=== PATIENT | female | born 1985 ===

== ENCOUNTER 2019-01-15 23:55 | Inpatient (IN) | payer BC ==
[2019-01-16] MEDS ORDERED: TERBUTALINE 1 MG/ML VIAL SQ PRN (00:53)
[2019-01-16] MEDS ORDERED: CARBOPROST TROMETHAMINE 250 MCG/ML 1 ML AMP IM PRN (00:53)
[2019-01-16] MEDS ORDERED: METHYLERGONOVINE 0.2 MG/ML 1 ML AMP IM PRN (00:53)
[2019-01-16] MEDS ORDERED: OXYTOCIN 10 UNIT/ML 1 ML VIAL IM PRN (00:53)
[2019-01-16] MEDS ORDERED: LIDOCAINE 0.5% (PF) 5 MG/ML (50 ML SDV) SQ PRN (00:53)
[2019-01-16] MEDS: LACTATED RINGERS 1,000 ML IV SCH ×4 (01:10→22:56)
[2019-01-16 01:25] LABS: Basophils % (A) 0 %; Eosinophils # (A) 0.1 k/uL (0-0.7); Eosinophils % (A) 1 %; HCT 35.8 % (34.0-46.0); HGB 12.1 gm/dL (11.4-16.0); Lymphocytes # (A) 1.8 k/uL (1.0-4.8); Lymphocytes % (A) 15 %; MCH 31.3 pg (25.0-35.0); MCHC 33.7 g/dL (31.0-37.0); MCV 92.9 fL (80.0-100.0); Mean Platelet Volume 7.9; Monocytes # (A) 0.8 k/uL (0-1.0); Monocytes % (A) 6 %; Neutrophils # (A) 9.2 k/uL (1.3-7.7); Neutrophils % (A) 75 %; Platelet Count 207 k/uL (150-450); RBC 3.86 m/uL (3.80-5.40); RDW 13.3 % (11.5-15.5); WBC 12.3 k/uL (3.8-10.6)
[2019-01-16] MEDS ORDERED: ROPIVACAINE 5MG/ML 20ML VIAL ONE (02:00)
[2019-01-16] MEDS ORDERED: ePHEDrine SULFATE/0.9% NACL/PF 50 MG/5 ML SYRINGE IV ONE (02:00)
[2019-01-16] MEDS ORDERED: SODIUM CHLORIDE 0.9% 100 ML BAG ONE (02:00)
[2019-01-16] MEDS ORDERED: fentaNYL (PF) 50 MCG/ML 5 ML AMP ONE (02:00)
[2019-01-16 02:27] VITALS: BMI 29.8
--- NOTE | 2019-01-16 04:42 | P.HPOB ---
History of Present Illness H&P Date: 01/16/19 Chief Complaint: 38+ weeks, early active labor The patient is a 33-year-old 1 para 0 admitted at 38+ weeks as established by in vitro fertilization dating parameters. She is admitted in early active labor with all signs reassuring. Her has been entirely u ncomplicated and group B strep status is negative. She does fall into the category of advanced maternal age and declined testing. Obstetrical history: 1 para 0 with current statistics listed above. EDC of 01/28/2019 was established by in vitro fertilization dating para meters. Laboratory workup demonstrates a blood type of A+ with a negative antibody screen. Rubella status is immune. The remainder of the laboratory workup was within normal limits. One hour Glucola was normal and group B strep status is negative. : Gynecologic history unremarkable with no history of any infections to include STDs. Review of Systems Review of systems is confined to history of present illness. Past Medical History Past Medical History: Thyroid Disorder Additional Past Medical History / Comment(s): hypothyroid, no longer taking meds History of Any Multi-Drug Resistant Organisms: None Reported Past Surgical History: No Surgical Hx Reported Past Anesthesia/Blood Transfusion Reactions: No Reported Reaction Past Psychological History: No Psychological Hx Reported Smoking Status: Never smoker Past Alcohol Use History: None Reported Past Drug Use History: None Reported - Past Family History Mother Family Medical History: No Reported History Medications and Allergies Home Medications Medication Instructions Recorded Confirmed Type Ferrous Sulfate [Iron] 325 mg PO DAILY 01/16/19 01/16/19 History Pnv,Calcium 72/Iron/Folic Acid 1 tab PO DAILY 01/16/19 01/16/19 History [ Plus Tablet] Allergies Allergy/AdvReac Type Severity Reaction Status Date / Time No Known Allergies Allergy Verified 01/16/19 00:15 Exam Vital Signs Temp Pulse Resp BP Pulse Ox 01/16/19 00:53 98.1 F 76 16 114/74 99 01/16/19 00:17 98.1 F 76 16 114/74 99 Intake and Output 01/15/19 01/15/19 01/16/19 14:59 22:59 06:59 Other: Weight 73.936 kg In general, this is a well-developed, well-nourished female in no acute distress though she is near delivery. Her heart has a regular rhythm and rate without murmur. Her lungs are clear to auscultation bilaterally in all catherine. Her abdomen is gravid, nondistended, has normal active bowel sounds, is soft, nontender, and without any palpable masses aside from the uterine fundus. Her extremities are without any cyanosis, clubbing, or significant edema and are nontender to palpation bilaterally. Digital cervical examination at this time demonstrates her cervix to be dilated to a small rim, 100% effaced, the vertex in presentation at 0 to -1 station. Artificial rupture of membranes is carried out demonstrating clear fluid. Results Result Diagrams: 01/16/19 01:15 Abnormal Lab Results - Last 24 Hours (Table) 01/16/19 Range/Units 01:15 WBC 12.3 H (3.8-10.6) k/uL Neutrophils # 9.2 H (1.3-7.7) k/uL Assessment and Plan (1) Active labor at term Current Visit: Yes Status: Acute Code(s): FEF1126 - SNOMED Code(s): 46359321 Plan: The patient has been admitted for close maternal and surveillance and expectant management. An epidural catheter is in place for analgesia. We'll anticipate normal spontaneous vaginal delivery in the near future.
[2019-01-16] MEDS ORDERED: CITRIC ACID-SODIUM CITRATE 15 ML CUP PO ONE (07:03)
[2019-01-16] MEDS ORDERED: ONDANSETRON 4 MG/2 ML VIAL ONE (07:12)
[2019-01-16] MEDS ORDERED: MORPHINE SULFATE (PF) 0.3 MG/0.3 ML SYR ONE (07:12)
[2019-01-16] MEDS ORDERED: OXYTOCIN 10 UNIT/ML 1 ML VIAL ONE (07:12)
[2019-01-16] MEDS ORDERED: DEXAMETHASONE SOD PHOS (MDV) 100 MG/10 ML VIAL ONE (07:12)
[2019-01-16] MEDS ORDERED: KETOROLAC 30 MG/ML 1 ML VIAL ONE (07:12)
[2019-01-16] MEDS ORDERED: CHLOROPROCAINE 3% 30 MG/ML 20 ML VIAL ONE (07:12)
[2019-01-16] MEDS ORDERED: diphenhydrAMINE 50 MG/ML 1 ML VIAL IVP PRN ×2 (08:03)
[2019-01-16] MEDS ORDERED: HYDROcodone/APAP 7.5-325MG 1 EACH TAB PO PRN (08:03)
[2019-01-16] MEDS ORDERED: HYDROcodone/APAP 5-325MG 1 EACH TAB PO PRN (08:03)
[2019-01-16] MEDS ORDERED: ACETAMINOPHEN TAB 325 MG TAB PO PRN (08:03)
[2019-01-16] MEDS ORDERED: LANOLIN CREAM 5 GM TUBE TOPICAL PRN (08:03)
[2019-01-16] MEDS ORDERED: SIMETHICONE 80 MG CHEWABLE PO PRN (08:03)
[2019-01-16] MEDS ORDERED: ZOLPIDEM 5 MG TAB PO PRN (08:03)
[2019-01-16] MEDS ORDERED: diphenhydrAMINE 25 MG CAP PO PRN (08:03)
[2019-01-16] MEDS ORDERED: NALOXONE 0.4 MG/ML 1 ML VIAL IV PRN (08:03)
[2019-01-16] MEDS ORDERED: METOCLOPRAMIDE 5 MG/ML 2 ML VIAL IVP PRN (08:03)
[2019-01-16] MEDS ORDERED: diphenhydrAMINE 50 MG CAP PO PRN (08:03)
[2019-01-16] MEDS ORDERED: ONDANSETRON 4 MG/2 ML VIAL IVP PRN (08:03)
--- NOTE | 2019-01-16 08:11 | P.OP ---
Date of Procedure: 01/16/19 Preoperative Diagnosis: #1. 38-2/7 weeks, active labor #2. Arrest of descent in the second stage Postoperative Diagnosis: Same plus #3. right occiput posterior presentation Procedure(s) Performed: #1. Primary low-transverse section Anesthesia: epidural Surgeon: Jose Billings Wedger And Gluer #1: Charlene Francisco Estimated Blood Loss (ml): 300 IV fluids (ml): 500 Urine output (ml): 75 Pathology: none sent Condition: stable Disposition: floor Operative Findings: Preoperatively the patient progressed to complete and approximately 0 station. She pushed over the course of approximately 2 hours with no descent of the station below 0 to +1 station. She was felt to have a narrow pelvis. She was counseled and agreed to proceed to the operating room for primary low-transverse section where she was delivered of a viable 6 lbs. 2 oz. baby boy with Apgars of 7 at 1 minute and 8 at 5 minutes delivered in the right occiput posterior position. The placenta was delivered manually, intact, and grossly normal with a grossly normal three-vessel cord. The uterus, tubes, and ovaries were normal to inspection. Description of Procedure: The patient was prepped and draped in usual fashion after epidural anesthesia was bolused by the anesthesiologist. A Pfannenstiel incision was made and extended into the abdominal cavity without difficulty. The bladder peritoneum was elevated, incised, and reflected distally as the head was thought to be low in the pelvis. A 2 cm incision was made in the transverse plane of the lower uterine segment to enter the uterus at which time clear fluid was again noted. The incision was extended in both directions using the bandage scissors. The head was encountered deep within the pelvis and was elevated up and through the incision where the nose and mouth were thoroughly suctioned. Remainder of the was delivered onto the field where the cord was doubly clamped, cut, and the passed for resuscitative measures with weight and Apgars as noted above. A segment of cord was doubly clamped, cut, and set aside should cord gases be necessary. The placenta was delivered manually and intact as noted above. The uterus was exteriorized and the interior cavity of the uterus swept of any remaining placental or membranous fragments. The margins of the incision were grasped with Casey clamps and there were noted to be bilateral short extensions of the uterine incision towards the cervix, neither at the angle. These were incorporated into the closure. The incision was then closed in 2 layers with the first layer being a running locking stitch of 0 chromic catgut followed by a running imbricating layer of 0 chromic catgut, each from margin to margin. Any small points of bleeding were made hemostatic with the Bovie. The posterior cul-de-sac was suctioned with a guard and the uterine and ovarian findings were normal as noted above. The uterus was replaced within the abdominal cavity and the incision reexamined. One point of bleeding in the left central portion of the incision was made hemostatic with a single [id number] stitch of 0 chromic catgut. Any other small points of bleeding were made hemostatic with the Bovie. Once hemostasis was achieved, the parietal peritoneum was loosely reapproximated and layer of muscles examined and found to be hemostatic. The fascia was closed with a single running stitch of 0 Vicryl proceeding from margin to margin. The subcutaneous tissues were irrigated, made hemostatic with the Bovie, and reapproximated with a running stitch of 30 plain catgut. The skin was reapproximated with a running subcuticular stitch of 4-0 Vicryl from margin to margin followed by half-inch Steri-Strips placed with Mastisol. Estimated blood loss for the entire case was approximately 300 mL. There were no complications. All sponge, instrument, and needle counts were correct. The patient tolerated the procedure well and proceeded to the recovery room in stable condition. Both mother and are resting comfortably in recovery.
[2019-01-16] MEDS ORDERED: OXYTOCIN 20 UNITS/1000 ML NS 1,000 ML IV SCH (08:15)
[2019-01-16] MEDS: KETOROLAC 30 MG/ML 1 ML VIAL IVP PRN (20:54)
[2019-01-16] MEDS: SENNOSIDES-DOCUSATE SODIUM 1 EACH TAB PO SCH (22:54)
[2019-01-17] MEDS: KETOROLAC 30 MG/ML 1 ML VIAL IVP PRN (05:49)
[2019-01-17 07:48] LABS: Basophils % (A) 0 %; Eosinophils # (A) 0.1 k/uL (0-0.7); Eosinophils % (A) 1 %; HCT 26.5 % (34.0-46.0); Lymphocytes # (A) 1.3 k/uL (1.0-4.8); Lymphocytes % (A) 11 %; MCH 31.7 pg (25.0-35.0); MCHC 33.6 g/dL (31.0-37.0); MCV 94.3 fL (80.0-100.0); Monocytes # (A) 0.7 k/uL (0-1.0); Monocytes % (A) 6 %; Neutrophils # (A) 9.6 k/uL (1.3-7.7); Neutrophils % (A) 81 %; Platelet Count 146 k/uL (150-450); RBC 2.81 m/uL (3.80-5.40); RDW 13.7 % (11.5-15.5); WBC 11.9 k/uL (3.8-10.6)
[2019-01-17 07:54] LABS: HGB 8.9 gm/dL (11.4-16.0)
[2019-01-17] MEDS: SENNOSIDES-DOCUSATE SODIUM 1 EACH TAB PO SCH ×2 (08:15→20:03)
--- NOTE | 2019-01-17 08:39 | P.PNOBGPC ---
Subjective - Subjective Patient reports: Reports appetite normal, Reports voiding normally, Reports pain well controlled, Reports ambulating normally : doing well, nursing well Objective - Vital Signs Latest vital signs: Vital Signs Temp Pulse Resp BP Pulse Ox 01/17/19 08:00 97.6 F 79 16 98/58 98 01/17/19 04:00 97.3 F L 70 16 99/60 01/17/19 00:00 98.0 F 81 16 95/49 98 01/16/19 20:00 99.1 F 81 16 101/58 97 01/16/19 16:00 18 01/16/19 12:00 98.3 F 71 16 110/63 98 01/16/19 10:05 98.3 F 69 16 117/55 100 01/16/19 09:35 70 16 113/59 100 01/16/19 09:05 75 16 101/50 100 01/16/19 08:50 71 16 104/55 98 Intake and Output 01/16/19 01/17/19 01/17/19 22:59 06:59 14:59 Intake Total 300 Output Total 1300 550 Balance -1000 -550 Intake: Oral 300 Output: Urine 1300 550 Other: # Voids 1 1 - Exam Extremities: Present: normal Abdomen: Present: normal appearance, soft. Absent: distention, tenderness Incision: Present: normal, dry, intact Uterus: Present: normal, firm (The uterine fundus is tonic and nontender at the umbilicus.) - Labs Labs: Abnormal Lab Results - Last 24 Hours (Table) 01/17/19 Range/Units 06:37 WBC 11.9 H (3.8-10.6) k/uL RBC 2.81 L (3.80-5.40) m/uL Hgb 8.9 L D (11.4-16.0) gm/dL Hct 26.5 L (34.0-46.0) % Plt Count 146 L (150-450) k/uL Neutrophils # 9.6 H (1.3-7.7) k/uL Assessment and Plan (1) Active labor at term Current Visit: Yes Status: Acute Code(s): [id number] - SNOMED Code(s): 38721204 (2) S/P section Current Visit: Yes Status: Acute Code(s): Z98.891 - HISTORY OF UTERINE SCAR FROM PREVIOUS SURGERY SNOMED Code(s): 075181721 Plan: Continue routine postoperative care. I have encouraged her amulet the hallways at least 4 times daily and would anticipate discharge home tomorrow pending no complications.
[2019-01-17] MEDS: IBUPROFEN 600 MG TAB PO PRN ×2 (12:35→20:03)
[2019-01-18] MEDS: IBUPROFEN 600 MG TAB PO PRN ×2 (04:12→17:17)
[2019-01-18] MEDS: SENNOSIDES-DOCUSATE SODIUM 1 EACH TAB PO SCH (08:00)
--- NOTE | 2019-01-18 09:16 | P.PNOBGPC ---
Subjective - Subjective Patient reports: Reports appetite normal, Reports voiding normally, Reports pain well controlled, Reports ambulating normally : doing well Objective - Vital Signs Latest vital signs: Vital Signs Temp Pulse Resp BP Pulse Ox 01/18/19 00:00 98.9 F 72 16 95/59 96 01/17/19 16:00 98.0 F 75 16 105/65 99 - Exam Extremities: Present: normal, edema (1-2+ bilateral lower extremity pitting edema to the mid calf.) Abdomen: Present: normal appearance, soft. Absent: distention, tenderness Incision: Present: normal, dry, intact Uterus: Present: normal, firm Assessment and Plan (1) Active labor at term Current Visit: Yes Status: Acute Code(s): [id number] - SNOMED Code(s): 48448226 (2) S/P section Current Visit: Yes Status: Acute Code(s): Z98.891 - HISTORY OF UTERINE SCAR FROM PREVIOUS SURGERY SNOMED Code(s): 485472125 Plan: Continue routine postoperative and care. I would anticipate discharge home tomorrow pending no complications.
[2019-01-19 00:02] VITALS: RESP 16
[2019-01-19] MEDS: IBUPROFEN 600 MG TAB PO PRN ×2 (06:06→12:11)
[2019-01-19] MEDS: SENNOSIDES-DOCUSATE SODIUM 1 EACH TAB PO SCH ×2 (07:02→08:43)
[2019-01-19 09:01] VITALS: BP 109/57; PULSE 75; TEMP 98.3
--- NOTE | 2019-01-19 09:55 | P.DS ---
Providers Date of admission: 01/16/19 00:40 Expected date of discharge: 01/19/19 Attending physician: Jose Billings Primary care physician: Stated None - Discharge Diagnosis(es) (1) Active labor at term Current Visit: Yes Status: Acute (2) S/P section Current Visit: Yes Status: Acute Hospital Course: The patient is a 33-year-old 1 para 0 admitted at 38+ weeks by good dating parameters perches admitted in early active labor with all signs reassuring. Her was uncomplicated and group B strep status was negative. She fell into the category of advanced maternal age and declined testing for trisomy. She labored to complete and then pushed for well over an hour with no descent of the head below 0 station and was thought to have both a contracted pelvis and possible malposition. She was taken the operating room where she underwent primary low-transverse section and uncomplicated fashion and was delivered of a viable 6 lbs. 2 oz. baby boy with Apgars of 7 at 1 minute and 8 at 5 minutes. Her postoperative course was unremarkable vital signs remaining stable and her temperature was afebrile throughout. She was deemed stable for discharge on postoperative day #3 and was discharged home to follow-up in the office in 2 weeks for an incision check and 6 weeks routinely. Discharge instructions included calling for any significantly increased bleeding or foul-smelling lochia, significantly increased fever or abdominal pain, perineal complaints, breast complaints, incisional complaints, or anything else that concerned her. She was additionally instructed to have nothing in the vagina for at least 6 weeks time to include intercourse and to abstain from any heavy lifting over the same period of time. She was lastly instructed to do no driving until off of all pain medications or 2 weeks' time, whichever came first. She understood her instructions and agrees to follow up as noted above. Discharge medications included continued vitamins as she has opted to breast-feed. She was additionally to take [id number] analgesic pain medications as needed was provided with a prescription for Tylenol No. 3, 1-2 by mouth every 6 hours when necessary pain, #20 dispensed with no refills. Maternal blood type is A+ and rubella status is immune. Discharge hemoglobin and hematocrit were 8.9 and 26.5 respectively. As a result, she was advised to take iron sulfate 325 mg daily for the next 1-2 months. Procedures: #1. Epidural analgesia #2. Primary low-transverse section Patient Condition at Discharge: Stable Plan - Discharge Summary New Discharge Prescriptions: No Action Pnv,Calcium 72/Iron/Folic Acid [ Plus Tablet] 1 tab PO DAILY Ferrous Sulfate [Iron] 325 mg PO DAILY Discharge Medication List Ferrous Sulfate [Iron] 325 mg PO DAILY 01/16/19 [History] Pnv,Calcium 72/Iron/Folic Acid [ Plus Tablet] 1 tab PO DAILY 01/16/19 [History] Follow up Appointment(s)/Referral(s): Jose Billings MD [STAFF PHYSICIAN] - 2 Weeks Discharge Disposition: HOME SELF-CARE
== END 2019-01-19 12:20 | disposition home or self-care (01) | DRG 788 ==
LOC: FBPOP 23:55 → 4FBP 01-16 00:40 → UNDODISIN 01-17 14:30
PROVIDERS: ADMIT Obstetrics & Gynecology; ATTEND Obstetrics & Gynecology
PROC: 10907ZC Drainage of Amniotic Fluid, Therapeutic from Products of Conception, Via Natural or Artificial Opening (ICD-10-PCS; 2019-01-16)
PROC: 00HU33Z Insertion of Infusion Device into Spinal Canal, Percutaneous Approach (ICD-10-PCS; 2019-01-16)
PROC: 3E0R3NZ Introduction of Analgesics, Hypnotics, Sedatives into Spinal Canal, Percutaneous Approach (ICD-10-PCS; 2019-01-16)
PROC: 10D00Z1 Extraction of Products of Conception, Low, Open Approach (ICD-10-PCS; principal; 2019-01-16 06:53)
DX: O32.4XX0 Maternal care for high head at term, not applicable or unspecified (principal); O33.1 Maternal care for disproportion due to generally contracted pelvis; O32.9XX0 Maternal care for malpresentation of fetus, unspecified, not applicable or unspecified; O62.1 Secondary uterine inertia; Z37.0 Single live birth; Z3A.38 38 weeks gestation of pregnancy
CPT/HCPCS: 59025; 85025; 86850; 86900; 86901; 99213

== ENCOUNTER → 2021-05-25 | Outpatient (CLI) | payer BC ==
--- NOTE | 2021-06-03 13:59 | MM ---
Reason for exam: screening (asymptomatic). Last mammogram was performed 4 years and 1 month ago. History: Patient had first child at age 34. Physical Findings: A clinical breast exam by your physician is recommended on an annual basis and results should be correlated with mammographic findings. MG Screening Mammo w CAD Bilateral CC and MLO view(s) were taken. Prior study comparison: April 14, 2017, mammogram, performed at [facility]. The breast tissue is extremely dense which could obscure a lesion on mammography. There is no discrete abnormality. No significant changes when compared with prior studies. ASSESSMENT: Negative, BI-RAD 1 RECOMMENDATION: Routine screening mammogram of both breasts in 1 year.
== END | disposition home or self-care (01) ==
LOC: RADMAMWWP 10:12
PROVIDERS: ATTEND Obstetrics & Gynecology
DX: Z12.31 Encounter for screening mammogram for malignant neoplasm of breast (principal)
CPT/HCPCS: 77067

== ENCOUNTER → 2023-05-29 | Outpatient (CLI) | payer BC ==
--- NOTE | 2023-05-30 22:16 | MM ---
Reason for Exam: Screening (asymptomatic). Last screening mammogram was performed 12 month(s) ago. Patient History: Menarche at age 10. First Full-Term at age 34. Late child-bearing (after 30). Premenopausal. Risk Values: Diana 5 year model risk: 0.5%. NCI Lifetime model risk: 9.7%. Prior Study Comparison: 04/14/2017 Screening Mammogram, [facility]. 05/25/2021 Bilateral Screening Mammogram, [facility]. 05/26/2022 Bilateral MG screening mammo w CAD, [facility]. Tissue Density: The breast tissue is heterogeneously dense. This may lower the sensitivity of mammography. Findings: Analyzed By CAD. Unchanged areas of bilateral asymmetric density. There is no suspicious group of microcalcifications or new suspicious mass in either breast. Overall Assessment: Benign, BI-RAD 2 Management: Screening Mammogram of both breasts in 1 year. . Patient should continue monthly self-breast exams. A clinical breast exam by your physician is recommended on an annual basis. This exam should not preclude additional follow-up of suspicious palpable abnormalities. Note on Diana scores and lifetime risk: 1. A Diana score greater than 3% is considered moderate risk. If this is the case, consider specialist referral to assess eligibility for a risk reducing agent. 2. If overall lifetime risk for the development of breast cancer is 20% or higher, the patient may qualify for future screening with alternating mammogram and breast MRI. Electronically signed and approved by: Ofelia Bhatti M.D. Radiologist
== END | disposition home or self-care (01) ==
LOC: RADMAMWWP 11:17
PROVIDERS: ATTEND Obstetrics & Gynecology
DX: Z12.31 Encounter for screening mammogram for malignant neoplasm of breast (principal)
CPT/HCPCS: 77067

== ENCOUNTER → 2024-08-05 | Outpatient (CLI) | payer BC ==
--- NOTE | 2024-08-05 14:27 | MM ---
Reason for Exam: Screening (asymptomatic). Last mammogram was performed 1 year(s) and 2 month(s) ago. Patient History: Menarche at age 10. First Full-Term at age 34. Late child-bearing (after 30). Premenopausal. Risk Values: Diana 5 year model risk: 0.6%. NCI Lifetime model risk: 9.6%. Prior Study Comparison: 05/25/2021 Bilateral Screening Mammogram, [facility]. 05/26/2022 Bilateral MG screening mammo w CAD, [facility]. 05/29/2023 Bilateral MG screening mammo w CAD, [facility]. Tissue Density: The breasts are heterogeneously dense, which may obscure small masses. Findings: Analyzed By CAD. There are a few tiny benign-appearing round calcifications in the left breast. There is no suspicious group of microcalcifications or new suspicious mass in either breast. Overall Assessment: Negative, BI-RAD 1 Management: Screening Mammogram of both breasts in 1 year. Some advise annual bilateral breast ultrasound surveillance in patients with background dense tissue. Patient should continue monthly self-breast exams. A clinical breast exam by your physician is recommended on an annual basis. This exam should not preclude additional follow-up of suspicious palpable abnormalities. Note on Diana scores and lifetime risk: 1. A Diana score greater than 3% is considered moderate risk. If this is the case, consider specialist referral to assess eligibility for a risk reducing agent. 2. If overall lifetime risk for the development of breast cancer is 20% or higher, the patient may qualify for future screening with alternating mammogram and breast MRI. [facility], , 08/05/2024 2:25 PM. Electronically signed and approved by: Solomon Watkins M.D.
== END | disposition home or self-care (01) ==
LOC: RADMAMWWP 13:26
PROVIDERS: ATTEND Family Medicine
DX: Z12.31 Encounter for screening mammogram for malignant neoplasm of breast (principal); R92.333 Mammographic heterogeneous density, bilateral breasts; R92.1 Mammographic calcification found on diagnostic imaging of breast
CPT/HCPCS: 77067